=== PATIENT | female | born 1960 | race African-American/Black ===

== ENCOUNTER 2020-12-03 17:53 | Emergency (ER) | payer BC, OTHER ==
[~2020-12-03] VITALS: Ht 160 cm; Wt 63.0 kg
[2020-12-03] MEDS ORDERED: ROSUVASTATIN CA10 MG PO (18:06)
[2020-12-03] MEDS ORDERED: SPIRONOLACTONE25 MG PO (18:06)
[2020-12-03 18:37] LABS: URINE BILIRUBIN NEGATIVE (Negative); URINE BLOOD NEGATIVE (Negative); URINE CLARITY CLEAR; URINE COLOR YELLOW; URINE GLUCOSE-RANDOM* NEGATIVE (Negative); URINE KETONES NEGATIVE (Negative); URINE LEUKOCYTES-REFLEX NEGATIVE (Negative); URINE NITRITE-REFLEX NEGATIVE (Negative); URINE PROTEIN (DIPSTICK) NEGATIVE (Negative); URINE SPECIFIC GRAVITY 1.025 (1.005-1.035); URINE UROBILINOGEN 0.2 E.U./dl (0.2-1.0)
[2020-12-03 18:39] LABS: ABSOLUTE NEUTROPHILS 6.2 thou/uL (1.4-8.2); BASOPHILS 0.5 % (0.0-2.0); EOSINOPHILS 0.1 % (0.0-3.0); HEMATOCRIT 36.8 % (37.0-47.0); HEMOGLOBIN 12.1 gm/dL (12.0-15.0); LYMPHOCYTES 10.6 % (24.0-44.0); MCH 32.4 pg (26.0-34.0); MCHC 32.9 g/dL (28.0-37.0); MCV 98.5 fL (80.0-100.0); MONOCYTES 8.3 % (1.0-8.0); PLATELET COUNT 269 thou/uL (150-400); POLYS 80.5 % (36.0-66.0); RBC 3.73 mil/uL (4.20-5.00); RDW 12.2 % (10.5-14.5); WBC 7.6 thou/uL (4.0-11.0)
[2020-12-03 18:47] LABS: CALCIUM 8.9 mg/dL (8.5-10.1); CREATININE 0.9 mg/dL (0.6-1.0)
[2020-12-03 18:53] LABS: ALBUMIN 3.9 g/dL (3.4-5.0); TOTAL BILIRUBIN 0.7 mg/dL (0.2-1.0); TOTAL PROTEIN 7.5 g/dL (6.4-8.2)
[2020-12-03 19:53] VITALS: BP 119/58
== END 2020-12-03 20:05 | disposition home or self-care (01) ==
LOC: ER 17:53
PROVIDERS: Emergency Medicine
DX: S20.211A Contusion of right front wall of thorax, initial encounter (principal); R10.11 Right upper quadrant pain; M54.9 Dorsalgia, unspecified; Z79.899 Other long term (current) drug therapy; V43.52XA Car driver injured in collision with other type car in traffic accident, initial encounter; Y93.I9 Activity, other involving external motion; Y92.488 Other paved roadways as the place of occurrence of the external cause; Y99.8 Other external cause status